=== PATIENT | male | born 1935 | race Caucasian/White ===

== ENCOUNTER 2018-05-27 11:54 | Emergency (ER) | payer MEDICARE ==
[2018-05-27 12:06] VITALS: TEMP 97.6
[2018-05-27] MEDS ORDERED: ALBUTEROL/IPRATROPIUM 1 VIAL SOL INH ONE (12:08)
[2018-05-27] MEDS ORDERED: SOLUMEDROL 125 MG/2 ML 125 MG/2 ML PDS IV ONE (12:08)
[2018-05-27] MEDS ORDERED: SODIUM CHLORIDE 0.9% 1000ML 1,000 ML IV ONE (12:09)
[2018-05-27] MEDS ORDERED: ALBUTEROL/IPRATROPIUM 1 VIAL SOL ONE (12:10)
[2018-05-27] MEDS ORDERED: SOLUMEDROL 125 MG/2 ML 125 MG/2 ML PDS ONE (12:16)
[2018-05-27 12:19] LABS: ABG PH 7.33 (7.35-7.45)
[2018-05-27 12:23] LABS: BASOPHILS % (AUTO) 1 % (0-3); EOSINOPHILS % (AUTO) 1 % (0-9); HEMATOCRIT 39 % (39-53); LYMPHOCYTES % (AUTO) 17.1 % (10-50); MEAN CORPUSCULAR HGB CONC 33.1 gm/dl (32.0-36.0); MEAN CORPUSCULAR VOLUME 97 fL (80-100); MONOCYTES % (AUTO) 4.3 % (0-12); NEUTROPHILS % (AUTO) 76.5 % (37-80)
[2018-05-27 12:26] LABS: LACTIC ACID 2.8 mMol/L (0.0-2.0)
[2018-05-27 12:41] LABS: ALBUMIN 3.4 gm/dl (3.4-5.0); BILIRUBIN,TOTAL 0.5 mg/dl (0.2-1.0); CALCIUM 8.2 mg/dl (8.5-10.1); CARBON DIOXIDE 29.4 mEq/L (21-32); CREATININE 1.91 mg/dl (0.80-1.30); POTASSIUM 3.7 mMol/L (3.5-5.1); TOTAL PROTEIN 6.8 gm/dl (6.4-8.2)
[2018-05-27 12:42] LABS: TROP I 0.055 ng/ml (0.000-0.056)
[2018-05-27] MEDS ORDERED: LEVOFLOXACIN 25 MG/ML 500 MG in SODIUM CHLORIDE 0.9% 100 ML 100 ML IV ONE (12:42)
[2018-05-27] MEDS ORDERED: SODIUM CHLORIDE 0.9% 500 ML 500 ML IV ONE (12:42)
[2018-05-27] MEDS ORDERED: LEVOFLOXACIN 25 MG/ML SOL IV ONE (12:50)
[2018-05-27] MEDS ORDERED: MAGNESIUM SULFATE 1 GM/2 ML SOL IV ONE (12:53)
[2018-05-27] MEDS ORDERED: MAGNESIUM SULFATE 5 GM/10 ML SOL ONE (12:57)
[2018-05-27 13:04] LABS: ABG PH 7.36 (7.35-7.45)
[2018-05-27] MEDS ORDERED: ALBUTEROL NEB SOL 2.5MG/3ML 1 VIAL SOL ONE (13:53)
[2018-05-27] MEDS ORDERED: ALBUTEROL NEB SOL 2.5MG/3ML 1 VIAL SOL NEB ONE (13:56)
[2018-05-27] MEDS ORDERED: AZITHROMYCIN 250 MG TAB PO ONE (14:35)
[2018-05-27 14:54] LABS: ABG PH 7.32 (7.35-7.45)
[2018-05-27 15:25] VITALS: BP 129/81; PULSE 120; RESP 23; O2SAT 90
== END 2018-05-27 15:12 | disposition expired | DRG 204 ==
LOC: ED 11:54
DX: R06.03 Acute respiratory distress (principal); F41.9 Anxiety disorder, unspecified; J44.9 Chronic obstructive pulmonary disease, unspecified; I95.9 Hypotension, unspecified; Z66 Do not resuscitate
CPT/HCPCS: 36415; 36600; 71045; 80053; 82803; 83735; 83880; 84484; 85025; 85378; 87040; 93005; 96365; 96366; 96374; 96375; 99285; 99291; 99292; J1956; J2930; J3475; J7613